=== PATIENT | female | born 1950 | race Caucasian/White ===

== ENCOUNTER 2021-09-13 15:50 | Inpatient (IN) | payer MEDICARE ==
[2021-09-13] MEDS ORDERED: Ondansetron PF 4 MG/2 ML Vial ONE (16:57)
[2021-09-13] MEDS ORDERED: Morphine 4 MG/ML VIAL ONE (16:57)
[2021-09-13 16:59] LABS: #Basophils 0.1 10x3/uL (0.0-0.2); #Eosinphils 0.1 10x3/uL (0.0-0.5); #Monocytes 0.6 10x3/uL (0.0-1.1); #Neutrophils 13.1 10x3/uL (1.5-8.4); %Basophils 0.4 % (0.0-2.0); %Eosinophils 0.7 % (0.0-6.0); %Lymphocytes 7.9 % (18.0-47.0); %Monocytes 4.2 % (0.0-10.0); %Neutrophils 85.9 % (40.0-75.0); Hemoglobin 10.8 g/dL (12.0-15.5); Mean Corpuscular HGB CONC 31.4 g/dL (32.0-36.0); Mean Corpuscular Hemoglobin 26.1 pg (27.0-33.0); Mean Corpuscular Volume 83.1 fl (81.6-98.3); Mean Platelet Volume 9.1 fl (7.4-10.4); Platelet Count 546 10x3/uL (150-450); RBC Distribution Width 14.6 % (11.5-14.5); Red Blood Cell (RBC) Count 4.14 10x6/uL (3.90-5.03); White Blood Cell (WBC) Count 15.3 10x3/uL (3.5-10.5)
[2021-09-13 17:07] LABS: ALT (SGPT) 22 U/L (8-55); AST (SGOT) 22 U/L (5-34); Albumin 4.2 g/dL (3.4-4.8); Alkaline Phosphatase 129 U/L (40-110); Anion Gap 21 mmol/L (10-20); BUN (Urea Nitrogen) 32 mg/dL (9.8-20.1); Bilirubin, Total 0.4 mg/dL (0.2-1.2); Calc. Creatinine Clearance 0 mL/min (70-130); Calcium 9.7 mg/dL (7.8-10.44); Carbon Dioxide 18 mmol/L (23-31); Chloride 107 mmol/L (98-107); Globulin 3.2 g/dL (2.4-3.5); Glucose 161 mg/dL (80-115); Lipase 18 U/L (8-78); Potassium 5.4 mmol/L (3.5-5.1); Protein, Total 7.4 g/dL (5.8-8.1); Sodium 141 mmol/L (136-145)
[2021-09-13] MEDS ORDERED: Cefepime 2 GM VIAL ONE (17:56)
[2021-09-13 18:13] LABS: Prothrombin Time 11.2 sec (9.5-12.1)
[2021-09-13] MEDS ORDERED: Vancomycin 1.5 GRAM/300 ML BAG 1.5 GM in Premix Bag 1 BAG IVPB SCH (19:00)
[2021-09-13] MEDS ORDERED: Ondansetron PF 4 MG/2 ML Vial IVP PRN (20:01)
[2021-09-13 20:07] LABS: SARS-CoV-2 NAA Rapid Test DETECTED (NotDetected)
[2021-09-13 20:22] LABS: Magnesium 1.9 mg/dL (1.6-2.6)
[2021-09-13] MEDS ORDERED: EVEROLIMUS 0.5 MG PO SCH (21:00)
[2021-09-13] MEDS ORDERED: Meropenem 1 GM in Sodium Chloride 0.9% 100 ML IVPB SCH ×2 (22:00→23:00)
[2021-09-13] MEDS ORDERED: Tacrolimus 0.5 MG CAP PO SCH (22:15)
[2021-09-13 22:36] VITALS: BMI 37.0
[2021-09-14] MEDS: Meropenem 1 GM in Sodium Chloride 0.9% 100 ML IVPB SCH ×4 (01:23→21:21)
[2021-09-14] MEDS: Sodium Chloride 0.9% 1,000 ML IV SCH ×3 (01:25→13:28)
[2021-09-14] MEDS: Labetalol HCl 100 MG/20 ML VIAL SLOW IVP PRN ×2 (04:12→21:19)
[2021-09-14] MEDS ORDERED: Morphine 4 MG/ML VIAL SLOW IVP PRN (04:48)
[2021-09-14 05:16] LABS: #Eosinphils 0.1 10x3/uL (0.0-0.5); #Monocytes 0.9 10x3/uL (0.0-1.1); #Neutrophils 6.7 10x3/uL (1.5-8.4); %Basophils 0.4 % (0.0-2.0); %Eosinophils 0.9 % (0.0-6.0); %Lymphocytes 13.1 % (18.0-47.0); %Monocytes 9.5 % (0.0-10.0); %Neutrophils 74.9 % (40.0-75.0); Hemoglobin 8.6 g/dL (12.0-15.5); Mean Corpuscular HGB CONC 30.9 g/dL (32.0-36.0); Mean Corpuscular Hemoglobin 26.2 pg (27.0-33.0); Mean Corpuscular Volume 84.8 fl (81.6-98.3); Mean Platelet Volume 9.2 fl (7.4-10.4); Platelet Count 364 10x3/uL (150-450); RBC Distribution Width 14.8 % (11.5-14.5); Red Blood Cell (RBC) Count 3.28 10x6/uL (3.90-5.03); White Blood Cell (WBC) Count 8.9 10x3/uL (3.5-10.5)
[2021-09-14 05:30] LABS: Anion Gap 16 mmol/L (10-20); BUN (Urea Nitrogen) 28 mg/dL (9.8-20.1); Calc. Creatinine Clearance 54 mL/min (70-130); Calcium 8.8 mg/dL (7.8-10.44); Carbon Dioxide 17 mmol/L (23-31); Chloride 112 mmol/L (98-107); Glucose 104 mg/dL (80-115); Potassium 4.8 mmol/L (3.5-5.1); Sodium 140 mmol/L (136-145)
[2021-09-14] MEDS: Morphine 4 MG/ML VIAL SLOW IVP PRN ×3 (05:40→21:17)
[2021-09-14 06:52] LABS: Bilirubin Neg (Negative); Blood, Urine 10 (Negative); Clarity Clear (Clear); Glucose, Urine (Dipstick) Normal (Negative); Ketone, Urine Negative (Negative); Leukocyte Negative (Negative); Nitrite Negative (Negative); Protein, Urine (Dipstick) 30 mg/dl (Neg-Trace); Urobilinogen Normal mg/dL (Less than 2)
[2021-09-14 07:05] LABS: Bacteria/HPF Rare-Few HPF (None Seen); Oval Fat Bodies/HPF Rare HPF (None Seen); RBC/HPF 0-3 HPF (0-3); Squamous Epithelial 0-3 HPF (0-3); WBC/HPF 0-3 HPF (0-3)
[2021-09-14] MEDS: Carvedilol 25 MG TAB PO SCH ×2 (08:27→17:48)
[2021-09-14] MEDS: Tacrolimus 0.5 MG CAP PO SCH ×2 (08:28→21:18)
[2021-09-14] MEDS: Enoxaparin Sodium 40 MG/0.4 ML SYRINGE SC SCH (08:28)
[2021-09-14] MEDS: Sodium Bicarbonate Tab 325 MG TAB PO SCH ×2 (10:27→21:18)
[2021-09-14] MEDS ORDERED: Vancomycin HCl 1 GM in Sodium Chloride 0.9% 250 ML 250 ML IVPB SCH (18:00)
[2021-09-15] MEDS: Morphine 4 MG/ML VIAL SLOW IVP PRN (00:41)
[2021-09-15] MEDS ORDERED: diphenhydrAMINE 25 MG CAP PO SCH (04:15)
[2021-09-15 04:18] LABS: #Eosinphils 0.2 10x3/uL (0.0-0.5); #Monocytes 0.7 10x3/uL (0.0-1.1); #Neutrophils 4.2 10x3/uL (1.5-8.4); %Basophils 0.5 % (0.0-2.0); %Eosinophils 3.5 % (0.0-6.0); %Lymphocytes 17.3 % (18.0-47.0); %Monocytes 10.9 % (0.0-10.0); %Neutrophils 66.7 % (40.0-75.0); Hemoglobin 8.4 g/dL (12.0-15.5); Mean Corpuscular Hemoglobin 25.5 pg (27.0-33.0); Mean Corpuscular Volume 85.1 fl (81.6-98.3); Platelet Count 352 10x3/uL (150-450); RBC Distribution Width 14.7 % (11.5-14.5); Red Blood Cell (RBC) Count 3.29 10x6/uL (3.90-5.03); White Blood Cell (WBC) Count 6.3 10x3/uL (3.5-10.5)
[2021-09-15 04:22] LABS: Anion Gap 15 mmol/L (10-20); BUN (Urea Nitrogen) 22 mg/dL (9.8-20.1); Calc. Creatinine Clearance 64 mL/min (70-130); Calcium 8.6 mg/dL (7.8-10.44); Carbon Dioxide 18 mmol/L (23-31); Chloride 111 mmol/L (98-107); Glucose 95 mg/dL (80-115); Potassium 4.7 mmol/L (3.5-5.1); Sodium 139 mmol/L (136-145)
[2021-09-15] MEDS ORDERED: Meropenem 1 GM VIAL ONE (08:40)
[2021-09-15] MEDS: Tacrolimus 0.5 MG CAP PO SCH ×2 (08:50→20:30)
[2021-09-15] MEDS: Sodium Bicarbonate Tab 325 MG TAB PO SCH ×2 (08:51→20:30)
[2021-09-15] MEDS: Enoxaparin Sodium 40 MG/0.4 ML SYRINGE SC SCH (08:51)
[2021-09-15] MEDS: Carvedilol 25 MG TAB PO SCH ×2 (08:51→17:02)
[2021-09-15] MEDS: Meropenem 1 GM in Sodium Chloride 0.9% 100 ML IVPB SCH (09:43)
[2021-09-15] MEDS ORDERED: NIFEdipine XL 30 MG TAB PO SCH (11:00)
[2021-09-16] MEDS: Sodium Bicarbonate Tab 325 MG TAB PO SCH (07:56)
[2021-09-16] MEDS: Enoxaparin Sodium 40 MG/0.4 ML SYRINGE SC SCH (07:57)
[2021-09-16] MEDS: Tacrolimus 0.5 MG CAP PO SCH (07:57)
[2021-09-16] MEDS: Carvedilol 25 MG TAB PO SCH (07:57)
[2021-09-16 08:13] VITALS: BP 189/86; TEMP 98.3
[2021-09-16] MEDS ORDERED: NIFEdipine XL 30 MG TAB PO SCH (09:00)
== END 2021-09-16 11:35 | disposition home or self-care (01) | DRG 391 ==
LOC: CSHERS 15:50 → CSHTELE 22:08
PROVIDERS: ADMIT Family Medicine; ATTEND Hospitalist
DX: A08.4 Viral intestinal infection, unspecified (principal); U07.1 COVID-19; Z94.4 Liver transplant status; D84.9 Immunodeficiency, unspecified; I12.9 Hypertensive chronic kidney disease with stage 1 through stage 4 chronic kidney disease, or unspecified chronic kidney disease; N18.9 Chronic kidney disease, unspecified; E87.5 Hyperkalemia; Z85.038 Personal history of other malignant neoplasm of large intestine; Z92.25 Personal history of immunosuppression therapy; Z88.5 Allergy status to narcotic agent; Z90.49 Acquired absence of other specified parts of digestive tract; Z87.891 Personal history of nicotine dependence
CPT/HCPCS: 36415; 71045; 74177; 80048; 80053; 81001; 82274; 83605; 83630; 83690; 83735; 84484; 85025; 85610; 87040; 87045; 87046; 87081; 87177; 87324; 87427; 87449; 93005; J0692; J1650; J2185; J2270; J2405; J3370; J3490; J7050; J7507; U0002

== ENCOUNTER 2022-01-15 08:25 | Outpatient (CLI) | payer MEDICARE | END 2022-01-15 08:26 | disposition home or self-care (01) | LOC: CSHMAMMO 08:25 | PROVIDERS: ATTEND Internal Medicine | DX: Z12.31 Encounter for screening mammogram for malignant neoplasm of breast (principal); Z85.05 Personal history of malignant neoplasm of liver | CPT/HCPCS: 77063; 77067 ==

== ENCOUNTER 2022-04-18 12:45 | Outpatient (CLI) | payer MEDICARE | END 2022-04-18 12:46 | disposition home or self-care (01) | LOC: CSHCT 12:45 | PROVIDERS: ATTEND Internal Medicine | DX: R31.9 Hematuria, unspecified (principal); K43.9 Ventral hernia without obstruction or gangrene; K63.89 Other specified diseases of intestine | CPT/HCPCS: 74176 ==

== ENCOUNTER 2022-08-29 13:53 | Outpatient (CLI) | payer MEDICARE | END 2022-08-29 13:54 | disposition home or self-care (01) | LOC: CSHMRI 13:53 | PROVIDERS: ATTEND Internal Medicine | DX: G50.0 Trigeminal neuralgia (principal) | CPT/HCPCS: 70544 ==

== ENCOUNTER 2024-02-27 10:14 | Outpatient (CLI) | payer MEDICARE | END 2024-02-27 10:15 | disposition home or self-care (01) | LOC: CSHRAD 10:14 | PROVIDERS: ATTEND Internal Medicine | DX: M47.26 Other spondylosis with radiculopathy, lumbar region (principal) | CPT/HCPCS: 72148 ==

== ENCOUNTER 2024-09-29 12:31 | Outpatient (CLI) | payer MEDICARE | END 2024-09-29 12:32 | disposition home or self-care (01) | LOC: CSHRAD 12:31 | PROVIDERS: ATTEND Nurse Practitioner | DX: J20.9 Acute bronchitis, unspecified (principal) | CPT/HCPCS: 71046 ==

== ENCOUNTER 2025-04-08 10:02 | Outpatient (CLI) | payer MEDICARE ==
[2025-04-08 11:37] LABS: Estimated GFR - POC 37.0
== END 2025-04-08 10:03 | disposition home or self-care (01) ==
LOC: CSHCT 10:02
PROVIDERS: ATTEND Nurse Practitioner Family
DX: Z85.05 Personal history of malignant neoplasm of liver (principal); Z94.4 Liver transplant status; R91.1 Solitary pulmonary nodule
CPT/HCPCS: 36415; 71250; 74183; 82565